=== PATIENT | female | born 1985 | race Caucasian/White ===

== ENCOUNTER 2017-07-18 00:05 | Emergency (ER) | payer OTHER ==
[2017-07-18 01:30] LABS: BILIRUBIN,URINE NEGATIVE (NEGATIVE)
[2017-07-18 01:38] LABS: HCG UR QUAL NEGATIVE; UA w/ MICROSCOPIC CHARGE YES; UR CULTURE IF IND INDICATED
[2017-07-18] MEDS ORDERED: SULFAM/TRIM 800/160 Prepack 2 PO STA (02:00)
[2017-07-18] MEDS ORDERED: PHENAZOPYRIDINE 100 MG TABLET PO STA (02:00)
[2017-07-18] MEDS ORDERED: SULFAMETH/TRIMETH DS 800/160 MG TABLET PO STA (02:00)
--- NOTE | 2017-07-18 02:01 | ED Physician Documentation ---
PD HPI FEMALE - Stated complaint Stated Complaint: FEMALE - Chief complaint Chief Complaint: Abd Pain - History obtained from History obtained from: Patient - History of Present Illness Timing - onset: Yesterday Timing - details: Gradual onset, Still present Associated symptoms: Dysuria, Urinary frequency. No: Vaginal bleeding, Vaginal discharge Similar symptoms before: Work up / diagnostics, Treatment Recently seen: Not recently seen - Additional information Additional information: Patient is a 31 year old female who is presenting to the emergency department for dysuria and hematuria. patient states that the symptoms have been going on for a couple of days and [place] [facility] [place] [facility] [place] so she came to the emergency department for evaluation. Review of Systems Constitutional: denies: Fever, Chills Eyes: denies: Loss of vision Ears: denies: Ear pain Nose: denies: Congestion GI: denies: Abdominal Pain, Nausea, Vomiting : reports: Dysuria, Frequency Skin: denies: Rash, Lesions Musculoskeletal: denies: Extremity pain Immunocompromised: denies: Immunocompromised PD PAST MEDICAL HISTORY - Present Medications Home Medications: Ambulatory Orders Medication Instructions Recorded Confirmed Phenazopyridine HCl [Pyridium] 200 mg PO TID PRN #6 tablet 07/18/17 Sulfamethox/Trimeth 800/160 1 each PO BID #10 tablet 07/18/17 [Bactrim Ds 800/160] - Allergies Allergies/Adverse Reactions: Allergies Allergy/AdvReac Type Severity Reaction Status Date / Time No Known Drug Allergies Allergy Verified 07/18/17 00:14 PD ED PE NORMAL - Vitals Vital signs reviewed: Yes - General General: Alert and oriented X 3, No acute distress - HEENT HEENT: Atraumatic, PERRL - Neck Neck: Supple, no meningeal sign - Cardiac Cardiac: RRR, No murmur - Respiratory Respiratory: No respiratory distress - Abdomen Abdomen: Non distended - Derm Derm: Normal color, Warm and dry, No rash - Extremities Extremities: No deformity - Neuro Neuro: Alert and oriented X 3, No motor deficit, No sensory deficit - Psych Psych: Normal mood, Normal affect Results - Vitals Vitals: Vital Signs - 24 hr 07/18/17 07/18/17 00:12 02:43 Temperature 36.7 C Heart Rate 106 H 79 Respiratory 18 Rate Blood Pressure 142/91 H 125/82 H O2 Saturation 100 100 Oxygen O2 Source Room air - Labs Labs: Laboratory Tests 07/18/17 01:20 Urine Color LT. YELLOW Urine Clarity CLEAR Urine pH 6.0 Ur Specific [place] <=1.005 Urine Protein NEGATIVE Urine Glucose (UA) NEGATIVE Urine Ketones NEGATIVE Urine Occult Blood MODERATE H Urine Nitrite NEGATIVE Urine Bilirubin NEGATIVE Urine Urobilinogen 0.2 (NORMAL) Ur Leukocyte Esterase SMALL H Urine RBC 0-5 Urine WBC 11-25 H Ur Squamous Epith Cells NONE SEEN Urine Bacteria None Seen Ur Microscopic Review INDICATED Urine Culture Comments INDICATED Urine HCG, Qual NEGATIVE PD MEDICAL DECISION MAKING - ED course Complexity details: reviewed results, considered differential, d/w patient ED course: Patient was seen and examined at bedside. Urine was collected and sent. Patient's results where consistent with a urinary tract infection. Patient was treated with pyridium and bactrim. Patient required no further work up and was stable for discharge with outpatient follow up. Departure - Departure Disposition: 01 Home, Self Care Clinical Impression: Urinary tract infection Condition: Good Instructions: ED UTI Cystitis Female Follow-Up: primary,care provider [Other] - Within 1 week Prescriptions: Sulfamethox/Trimeth 800/160 [Bactrim Ds 800/160] 1 each PO BID #10 tablet Phenazopyridine HCl [Pyridium] 200 mg PO TID PRN #6 tablet PRN Reason: dysuria Comments: Your symptoms today are being caused by a urinary tract infection. You will have your first dose of antibiotics tonight and will need to take if for the next 5 days. You should take the pyridium and motrin or tylenol for pain. You should make sure you stay well hydrated. You should follw up with your pmd if your symptoms persist. You may return to the emergency department at any time for new, worsening or uncontrollable symptoms. Forms: Activity restrictions Discharge Date/Time: 07/18/17 02:43
[2017-07-18] MEDS ORDERED: SULFAMETH/TRIMETH DS 800/160 MG TABLET PO ONE (02:38)
[2017-07-18] MEDS ORDERED: SULFAM/TRIM 800/160 Prepack 2 PO ONE (02:38)
[2017-07-18] MEDS ORDERED: PHENAZOPYRIDINE 100 MG TABLET PO ONE (02:39)
[2017-07-18 02:43] VITALS: BP 125/82
== END 2017-07-18 02:43 | disposition home or self-care (01) ==
LOC: ED 00:05
DX: N39.0 Urinary tract infection, site not specified (principal)
CPT/HCPCS: 81001; 81025; 87077; 87086; 87181; 99283; A9270; 81003

== ENCOUNTER 2017-07-23 06:55 | Emergency (ER) | payer OTHER ==
--- NOTE | 2017-07-23 07:10 | ED Physician Documentation ---
PD HPI NVD - Stated complaint Stated Complaint: VOMITING - Chief complaint Chief Complaint: Abd Pain - History obtained from History obtained from: Patient - History of Present Illness Timing - onset: Last night Timing - details: Abrupt onset, Still present Associated symptoms: Abdominal pain (cramping diffuse), Other (nausea and multiple vomiting without diarrhea.). No: Hematemesis Contributing factors: Bad food (onset soon after salad at a restaurant, but not sure if that was it. Also has been taking Ibuprofen for menstrual cramps the past 2 days and Bactrim for UTI the past 5 days. Dysuria has stopped.) Improved by: Vomiting Worsened by: Eating Similar symptoms before: Has not had sx before Recently seen: Emergency Dept (5 days ago for UTI symptoms.) Review of Systems Constitutional: reports: Myalgias. denies: Fever, Chills Nose: denies: Rhinorrhea / runny nose, Congestion Throat: denies: Sore throat Respiratory: denies: Cough GI: reports: Abdominal Pain, Nausea, Vomiting. denies: Abdominal Swelling, Diarrhea : reports: Dysuria (6 days ago, gone now), LMP (current). denies: Discharge Skin: denies: Rash, Lesions Neurologic: reports: Generalized weakness. denies: Near syncope PD PAST MEDICAL HISTORY - Past Medical History Cardiovascular: None Respiratory: None Neuro: None Endocrine/Autoimmune: None - Present Medications Home Medications: Ambulatory Orders Medication Instructions Recorded Confirmed Phenazopyridine HCl [Pyridium] 200 mg PO TID PRN #6 tablet 07/18/17 Sulfamethox/Trimeth 800/160 1 each PO BID #10 tablet 07/18/17 [Bactrim Ds 800/160] Ondansetron Odt [Zofran] 4 mg TL Q6H PRN #15 tablet 07/23/17 - Allergies Allergies/Adverse Reactions: Allergies Allergy/AdvReac Type Severity Reaction Status Date / Time No Known Drug Allergies Allergy Verified 07/23/17 07:04 PD ED PE NORMAL - Vitals Vital signs reviewed: Yes - General General: Alert and oriented X 3, Well developed/nourished - HEENT HEENT: Pharynx benign. No: Moist mucous membranes - Neck Neck: Supple, no meningeal sign, No adenopathy - Cardiac Cardiac: RRR (tachycardic), No murmur - Respiratory Respiratory: Clear bilaterally - Abdomen Abdomen: Normal bowel sounds, Soft, Non distended, No organomegaly, Other (mild suprapubic without guarding nor percussion tenderness. ) - Derm Derm: Normal color, Warm and dry, No rash - Neuro Neuro: Alert and oriented X 3, No motor deficit, Normal speech Results - Vitals Vitals: Vital Signs - 24 hr 07/23/17 07/23/17 07:02 08:09 Temperature 36.8 C 37.5 C Heart Rate 102 H 90 Respiratory 16 15 Rate Blood Pressure 109/76 100/88 H O2 Saturation 100 100 Oxygen O2 Source Room air - Labs Labs: Laboratory Tests 07/23/17 07:15 Urine Color YELLOW Urine Clarity CLEAR Urine pH 7.0 Ur Specific [place] 1.015 Urine Protein NEGATIVE Urine Glucose (UA) NEGATIVE Urine Ketones >=80 H Urine Occult Blood TRACE-LYSE Urine Nitrite NEGATIVE Urine Bilirubin NEGATIVE Urine Urobilinogen 0.2 (NORMAL) Ur Leukocyte Esterase NEGATIVE Ur Microscopic Review NOT INDICATED Urine Culture Comments NOT INDICATED Urine HCG, Qual NEGATIVE PD MEDICAL DECISION MAKING - ED course Complexity details: re-evaluated patient (improved with ODT Zofran and she preferred not having IV. She feels able to go home. ), considered differential ( the urine is clear so can stop the abx after 5 days of it. Also to hold Ibuprofen for menstrual cramps and use Tylenol instead. If gastritis from these , then would help. Zofran as needed. If was food related, then should be self- limited. ), d/w patient Departure - Departure Disposition: 01 Home, Self Care Clinical Impression: Dehydration Vomiting Qualifiers: Vomiting type: unspecified Vomiting Intractability: intractable Nausea presence : with nausea Qualified Code(s): R11.2 - Nausea with vomiting, unspecified Condition: Stable Record reviewed to determine appropriate education?: Yes Instructions: ED Nausea Vomiting Follow-Up: [facility] hectoraicha Garcia [Provider Group] Prescriptions: Ondansetron Odt [Zofran] 4 mg TL Q6H PRN #15 tablet PRN Reason: Nausea / Vomiting Comments: Your urine appears clear and so after 5 days of antibiotics, you can stop the antibiotic as that should be sufficient treatment. Also hold on any ibuprofen for your cramps and use Tylenol instead. Either or both of these could have been irritating her stomach. If your vomiting was related to those, then it should improve. Use ondansetron if needed for nausea. [place] food today. If your vomiting was related to food or food poisoning from last night, then it should be self-limited and improved today as well. If you are developing a viral type illness then it may have some persistence for a couple of days and use medications as needed. Recheck if worsening symptoms.
[2017-07-23 07:20] LABS: BILIRUBIN,URINE NEGATIVE (NEGATIVE)
[2017-07-23] MEDS ORDERED: ONDANSETRON ODT 4 MG TABLET TL STA (07:24)
[2017-07-23 07:27] LABS: HCG UR QUAL NEGATIVE; UA CHARGE (STRIP ONLY) YES; UR CULTURE IF IND NOT INDICATED
[2017-07-23] MEDS ORDERED: ONDANSETRON ODT 4 MG TABLET ONE ×2 (07:33→07:56)
[2017-07-23 08:09] VITALS: BP 100/88
[2017-07-23] MEDS ORDERED: ONDANSETRON ODT 4 MG Prepack 2 TL PRN (08:12)
[2017-07-23] MEDS ORDERED: ONDANSETRON ODT 4 MG Prepack 2 TL ONE (08:17)
== END 2017-07-23 08:18 | disposition home or self-care (01) ==
LOC: ED 06:55
DX: E86.0 Dehydration (principal); R11.2 Nausea with vomiting, unspecified
CPT/HCPCS: 81003; 81025; 99283; Q0162; 81001; 87086

== ENCOUNTER 2018-08-06 23:50 | Emergency (ER) | payer OTHER ==
[2018-08-07] MEDS ORDERED: SODIUM CHLORIDE 0.9% 1,000 ML IV ONE (00:02)
[2018-08-07] MEDS ORDERED: METOCLOPRAMIDE 10 MG/2 ML VIAL IVP STA (00:02)
[2018-08-07 00:15] LABS: BILIRUBIN,URINE NEGATIVE (NEGATIVE); GLUCOSE, URINE (UA) NEGATIVE (NEGATIVE); KETONES,URINE (UA) >=80 mg/dL (NEGATIVE); LEUKOCYTE ESTERASE, URINE TRACE (NEGATIVE); NITRITE,URINE NEGATIVE (NEGATIVE); OCCULT BLOOD,URINE NEGATIVE (NEGATIVE); PH,URINE 6.5 PH (5.0-7.5); PROTEIN,URINE NEGATIVE (NEGATIVE); UROBILINOGEN,URINE 0.2 (NORMAL) E.U./dL (NORMAL)
[2018-08-07 00:16] LABS: CLARITY,URINE CLEAR (CLEAR)
[2018-08-07 00:19] LABS: BACTERIA,URINE Rare /HPF (None Seen); RBC,URINE 0-5 /HPF (0-5); SQUAMOUS EPITHELIAL CELL,UR MOD Squamous (<= Few)
--- NOTE | 2018-08-07 00:32 | ED Physician Documentation ---
History of Present Illness - Stated complaint Stated Complaint: VOMITING,7W - Chief complaint Chief Complaint: Abd Pain - History obtained from History obtained from: Patient - Additonal information Additional information: 32-year-old female presents the emergency department with reports of nausea and vomiting. The patient is 7 weeks with her first and reports significant vomiting today. The patient denies any abdominal pain, abdominal cramping, dysuria or vaginal bleeding. No reports of diarrhea. Symptoms are described as moderate. No other associated symptoms. No relieving factors Review of Systems Constitutional: denies: Fever, Chills Ears: denies: Ear pain Throat: denies: Dental pain / toothache Cardiac: denies: Chest pain / pressure Respiratory: denies: Dyspnea GI: reports: Nausea, Vomiting. denies: Abdominal Pain : denies: Vaginal bleeding, Irregular menses Musculoskeletal: denies: Neck pain Neurologic: denies: Generalized weakness PD PAST MEDICAL HISTORY - Past Medical History Past Medical History: No Cardiovascular: None Respiratory: None Endocrine/Autoimmune: None - Past Surgical History Past Surgical History: No - Present Medications Home Medications: Ambulatory Orders Medication Instructions Recorded Confirmed Metoclopramide [Reglan] 10 mg PO Q6H PRN #30 tablet 08/07/18 Pnv No.122/Iron/Folic Acid 1 each PO DAILY 08/07/18 08/07/18 [ Multi Tablet] - Allergies Allergies/Adverse Reactions: Allergies Allergy/AdvReac Type Severity Reaction Status Date / Time No Known Drug Allergies Allergy Verified 08/07/18 00:00 - Social History Does the pt smoke?: No Smoking Status: Never smoker Does the pt drink ETOH?: No Does the pt have substance abuse?: No - Immunizations Immunizations are current?: Yes - POLST Patient has POLST: No PD ED PE NORMAL - General General: Alert and oriented X 3, No acute distress - HEENT HEENT: Atraumatic, PERRL, EOMI, Ears normal - Cardiac Cardiac: RRR, Strong equal pulses - Respiratory Respiratory: No respiratory distress, Clear bilaterally - Abdomen Abdomen: Soft, Non tender, Non distended - Derm Derm: Normal color - Extremities Extremities: No deformity, No edema - Neuro Neuro: Alert and oriented X 3, Normal speech - Psych Psych: Normal mood Results - Vitals Vitals: Vital Signs - 24 hr 08/06/18 23:57 Temperature 36.8 C Heart Rate 88 Respiratory 20 Rate Blood Pressure 116/81 H O2 Saturation 100 Oxygen O2 Source Room air - Labs Labs: Laboratory Tests 08/07/18 08/07/18 08/07/18 00:08 00:30 00:30 WBC 9.3 RBC 4.41 Hgb 12.9 Hct 37.9 MCV 86.1 MCH 29.3 MCHC 34.0 RDW 14.7 Plt Count 335 MPV 9.0 Neut # (Auto) 7.1 H Lymph # (Auto) 1.6 [place] # (Auto) 0.5 Eos # (Auto) 0.0 Baso # (Auto) 0.1 Absolute Nucleated RBC 0.00 Nucleated RBC % 0.0 Sodium 133 L Potassium 3.3 L Chloride 105 Carbon Dioxide 18 L Anion Gap 10.0 BUN 8 Creatinine 0.5 Estimated GFR (MDRD) 142 Glucose 108 H Calcium 8.9 Total Bilirubin 0.6 AST 14 ALT 10 Alkaline Phosphatase 41 L Total Protein 7.2 Albumin 4.2 Globulin 3.0 Albumin/Globulin Ratio 1.4 Lipase 31 HCG, Quant Urine Color YELLOW Urine Clarity CLEAR Urine pH 6.5 Ur Specific [place] 1.020 Urine Protein NEGATIVE Urine Glucose (UA) NEGATIVE Urine Ketones >=80 H Urine Occult Blood NEGATIVE Urine Nitrite NEGATIVE Urine Bilirubin NEGATIVE Urine Urobilinogen 0.2 (NORMAL) Ur Leukocyte Esterase TRACE H Urine RBC 0-5 Urine WBC 0-3 Ur Squamous Epith Cells MOD Squamous H Urine Bacteria Rare Ur Microscopic Review INDICATED Urine Culture Comments NOT INDICATED 08/07/18 00:30 WBC RBC Hgb Hct MCV MCH MCHC RDW Plt Count MPV Neut # (Auto) Lymph # (Auto) [place] # (Auto) Eos # (Auto) Baso # (Auto) Absolute Nucleated RBC Nucleated RBC % Sodium Potassium Chloride Carbon Dioxide Anion Gap BUN Creatinine Estimated GFR (MDRD) Glucose Calcium Total Bilirubin AST ALT Alkaline Phosphatase Total Protein Albumin Globulin Albumin/Globulin Ratio Lipase HCG, Quant 81027.00 Urine Color Urine Clarity Urine pH Ur Specific [place] Urine Protein Urine Glucose (UA) Urine Ketones Urine Occult Blood Urine Nitrite Urine Bilirubin Urine Urobilinogen Ur Leukocyte Esterase Urine RBC Urine WBC Ur Squamous Epith Cells Urine Bacteria Ur Microscopic Review Urine Culture Comments PD MEDICAL DECISION MAKING - ED course ED course: On reevaluation the patient is resting comfortably and requesting discharge home. On clinical examination and historyThere is no findings suggestive of ectopic or spontaneous miscarriage since the patient has no abdominal pain nor vaginal bleeding. Currently, the patient appears appropriate for dis charge and ongoing outpatient management. I discussed with her warning signs and recommended returning to the emergency department immediately for worsening or any concerns. - Sepsis Event Vital Signs: Vital Signs - 24 hr 08/06/18 23:57 Temperature 36.8 C Heart Rate 88 Respiratory 20 Rate Blood Pressure 116/81 H O2 Saturation 100 Oxygen O2 Source Room air Departure - Departure Disposition: 01 Home, Self Care Clinical Impression: Early stage of Vomiting Qualifiers: Vomiting type: unspecified Vomiting Intractability: unspecified Nausea presence: with nausea Qualified Code(s): R11.2 - Nausea with vomiting, unspecified Condition: Good Instructions: ED Preg Morning Sickness Prescriptions: Metoclopramide [Reglan] 10 mg PO Q6H PRN #30 tablet PRN Reason: Nausea / Vomiting Comments: Please follow-up with your [employer]. Please return to the emergency department immediately for worsening symptoms or any concerns.
[2018-08-07 00:35] LABS: BASOPHILS # (AUTO) 0.1 10^3/uL (0.0-0.1); BASOPHILS % (AUTO) 0.7 %; EOSINOPHILS % (AUTO) 0.5 %; HGB - HEMOGLOBIN 12.9 g/dL (12.0-16.0); LYMPHOCYTES # (AUTO) 1.6 10^3/uL (1.5-3.5); LYMPHOCYTES % (AUTO) 17.1 %; MEAN CORPUSCULAR HEMOGLOBIN 29.3 pg (27.0-31.0); MEAN CORPUSCULAR VOLUME 86.1 fL (81.0-99.0); MONOCYTES # (AUTO) 0.5 10^3/uL (0.0-1.0); MONOCYTES % (AUTO) 5.7 %; NEUTROPHILS # (AUTO) 7.1 10^3/uL (1.5-6.6); PLT - PLATELET COUNT 335 10^3/uL (130-450); RED BLOOD COUNT 4.41 10^6/uL (4.20-5.40); RED CELL DISTRIBUTION WIDTH 14.7 % (12.0-15.0); WHITE BLOOD COUNT 9.3 x10^3/uL (4.8-10.8)
[2018-08-07 00:48] LABS: ALBUMIN 4.2 g/dL (3.2-5.5); ALBUMIN/GLOBULIN RATIO 1.4 (1.0-2.2); BILIRUBIN,TOTAL 0.6 mg/dL (0.2-1.0); CALCIUM 8.9 mg/dL (8.5-10.3); CREATININE 0.5 mg/dL (0.4-1.0); TOTAL PROTEIN 7.2 g/dL (6.7-8.2)
[2018-08-07 01:35] VITALS: BP 117/73
== END 2018-08-07 01:39 | disposition home or self-care (01) ==
LOC: ED 23:50
DX: O21.0 Mild hyperemesis gravidarum (principal); Z3A.01 Less than 8 weeks gestation of pregnancy
CPT/HCPCS: 36415; 80053; 81001; 83690; 84702; 85025; 96361; 96374; 99283; J2765; 81003; 87086

== ENCOUNTER 2018-11-21 08:00 | Outpatient (CLI) | payer OTHER | END 2018-11-21 23:59 | LOC: LAB.R 08:00 | PROVIDERS: ATTEND Registered Nurse | DX: Z36.9 Encounter for antenatal screening, unspecified (principal) | CPT/HCPCS: 87491; 87591 ==

== ENCOUNTER 2018-12-27 07:28 | Outpatient (CLI) | payer OTHER ==
[2018-12-27 08:28] LABS: BASOPHILS # (AUTO) 0.2 10^3/uL (0.0-0.1); BASOPHILS % (AUTO) 1.5 %; BILIRUBIN,URINE NEGATIVE (NEGATIVE); EOSINOPHILS # (AUTO) 0.2 10^3/uL (0.0-0.7); EOSINOPHILS % (AUTO) 1.5 %; GLUCOSE, URINE (UA) NEGATIVE (NEGATIVE); KETONES,URINE (UA) NEGATIVE (NEGATIVE); LEUKOCYTE ESTERASE, URINE NEGATIVE (NEGATIVE); LYMPHOCYTES # (AUTO) 2.3 10^3/uL (1.5-3.5); LYMPHOCYTES % (AUTO) 21.6 %; MEAN CORPUSCULAR HEMOGLOBIN 30.8 pg (27.0-31.0); MEAN CORPUSCULAR HGB CONC 34.1 g/dL (32.0-36.0); MEAN CORPUSCULAR VOLUME 90.3 fL (81.0-99.0); MEAN PLATELET VOLUME 9.7 fL (7.9-10.8); MONOCYTES # (AUTO) 0.8 10^3/uL (0.0-1.0); MONOCYTES % (AUTO) 7.6 %; NEUTROPHILS # (AUTO) 7.3 10^3/uL (1.5-6.6); NEUTROPHILS % (AUTO) 67.8 %; NITRITE,URINE NEGATIVE (NEGATIVE); OCCULT BLOOD,URINE TRACE-LYSE (NEGATIVE); PLT - PLATELET COUNT 285 10^3/uL (130-450); PROTEIN,URINE NEGATIVE (NEGATIVE); RED BLOOD COUNT 3.88 10^6/uL (4.20-5.40); RED CELL DISTRIBUTION WIDTH 13.7 % (12.0-15.0); UROBILINOGEN,URINE 0.2 (NORMAL) E.U./dL (NORMAL); WHITE BLOOD COUNT 10.7 x10^3/uL (4.8-10.8)
[2018-12-27 08:30] LABS: CLARITY,URINE CLEAR (CLEAR)
[2018-12-27 08:37] LABS: ALBUMIN 3.2 g/dL (3.2-5.5); ALKALINE PHOSPHATASE 46 IU/L (42-121); ALT ALANINE AMINOTRANSFERASE 19 IU/L (10-60); AST ASPARTATE AMINOTRANSFERASE 21 IU/L (10-42); BILIRUBIN,TOTAL 0.3 mg/dL (0.2-1.0); TOTAL PROTEIN 6.5 g/dL (6.7-8.2)
[2018-12-27 08:52] LABS: BILIRUBIN,DIRECT < 0.1 mg/dL (0.1-0.5)
[2018-12-27 09:03] LABS: BACTERIA,URINE Rare /HPF (None Seen); RBC,URINE None Seen /HPF (0-5); SQUAMOUS EPITHELIAL CELL,UR FEW Squamous (<= Few)
[2018-12-27 09:04] LABS: YEAST,URINE PRESENT
--- NOTE | 2018-12-27 09:59 | Ultrasound Report ---
Reason: RUQ pain, nausea, 27 weeks 4 days gestation pregna Procedure Date: 12/27/2018 Accession Number: [id number] / [id number] Procedure: US - Abdomen Limited CPT Code: FULL RESULT: EXAM: ABDOMEN ULTRASOUND LIMITED, RUQ EXAM DATE: 12/27/2018 09:41 AM. CLINICAL HISTORY: RUQ pain, nausea, 27 weeks 4 days gestation . COMPARISON: None. TECHNIQUE: Real-time scanning was performed with static images obtained. FINDINGS: Liver: Hepatic parenchymal echotexture is within normal limits. No hepatic lesions. No intrahepatic ductal dilatation. The liver is not enlarged, 15.6 cm. Main portal vein flow: Hepatopetal. Gallbladder: Normal. No stones, wall thickening, or sonographic Thibodeaux's sign. Biliary System: CBD measures 3 mm. No intrahepatic or extrahepatic ductal dilatation. Other: Right kidney is normal in contour and echotexture and measures 11.2 cm. Mild to moderate right hydronephrosis and proximal right ureteral dilatation. IMPRESSION: 1. Normal gallbladder. No biliary ductal dilatation. 2. No hepatic lesions. 3. Mild to moderate right hydronephrosis and proximal right ureteral dilatation. RADIA
--- NOTE | 2018-12-27 10:16 | PREOP HISTORY & PHYSICAL ---
DATE OF SERVICE: 12/27/2018 Physician: Boaz Jacobs MD IDENTIFICATION: Patient is a 33-year-old G1, P0, female whose EDC is , making her 27.4 weeks. CHIEF COMPLAINT: Right-sided abdominal pain. HISTORY OF PRESENT ILLNESS: Patient states that roughly 10:30 this morning, she developed right-sided abdominal pain. It was quite severe. She grades it roughly at 9/10. She believes it started on the right lower side, but ascended up to the right upper abdomen. She does have a history of having some round ligament pain, but stated this was drastically different. It awakened her at 4 o'clock, she presented here at roughly 7:30 complaining of the same pain. The pain resolved spontaneously. She states that it is now roughly a 1/10 or 2/10. She denies any previous episodes. She denies a history of gallstones, kidney, or bladder issues. The patient is a recent transfer from [facility], PAST MEDICAL HISTORY: Patient denies any hypertensive, diabetic, cardiac, or pulmonary disease. PAST SURGICAL HISTORY: [place] teeth. ALLERGIES: NONE KNOWN. CURRENT MEDICATIONS: vitamins. HABITS: Patient denies use of alcohol, tobacco, street or addictive drugs, or THC. 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 OBSTETRIC HISTORY: Patient states this is her first . It is significant in that there is evidence of pyelocaliectasis on the infant. She currently has an ultrasound to be seen by the maternal medicine in the early part of January. LABORATORIES CBC on admission showed a white count of 10.7, hemoglobin is 12.0, hematocrit is 35.1, platelets are 285. She does not show evidence of any macrocytosis. Chemistries: She had bilirubins, which are noted to be within normal limits, with the exception of a direct bilirubin which is decreased at less than 0.1. Her alk phos, ALT, and AST are normal. Total protein is mildly depressed at 6.5. Urinalysis is negative for RBCs or WBCs, there are a few squamous epithelial. She does have some yeast at this time. STUDIES: Ultrasound has been performed, looking both gallbladder as well as kidney and the collecting system. These results are pending at this time; I anticipate their return very soon. PE. vital signs are normal. PEREOM Abdomin soft, uterus is nontender. no current RUQ tenderness No CVA tenderness IMPRESSION 1. 27.4 weeks' gestation. 2. Normal liver function tests, white count, as well as urinalysis. 3. probable renal colic as the US showed dilated right renal collecting system 3. At this point, I doubt that she has any gallbladder disease or evidence of renal lithiasis or pyelonephritis. At this point, most likely her diagnosis is that of either gas pain or round ligament, but since the duration of the pain, it speaks against round ligament. We will allow the patient to eat and will send home upon return of her ultrasound report. TD: 12/27/2018 10:10 TAPAN
[2018-12-27 10:27] VITALS: BP 112/81
== END 2018-12-27 10:00 | disposition home or self-care (01) ==
LOC: WFO 07:28 → FBP 07:29 → WFO 10:00
PROVIDERS: ATTEND Obstetrics & Gynecology
DX: O99.89 Other specified diseases and conditions complicating pregnancy, childbirth and the puerperium (principal); N13.30 Unspecified hydronephrosis; Z3A.27 27 weeks gestation of pregnancy
CPT/HCPCS: 36415; 76705; 80076; 81001; 85025; 87086; 99214

== ENCOUNTER 2019-01-18 08:50 | Outpatient (CLI) | payer OTHER ==
[2019-01-18 13:39] LABS: HB2 TOTAL 11.9 g/dL; HEMOGLOBIN A1C 0.37 g/dL
== END 2019-01-18 23:59 | disposition home or self-care (01) ==
LOC: LAB.N 08:50
PROVIDERS: ATTEND Registered Nurse
DX: Z36.9 Encounter for antenatal screening, unspecified (principal)
CPT/HCPCS: 36415; 82947; 83036; 86850

== ENCOUNTER 2019-01-29 09:43 | Outpatient (CLI) | payer OTHER ==
--- NOTE | 2019-01-29 14:37 | Ultrasound Report ---
Reason: ENCOUNTER FOR SCREENING,UNSPECIFIED Procedure Date: 01/29/2019 Accession Number: [id number] / [id number] Procedure: US - OB F/U or Repeat CPT Code: FULL RESULT: EXAM: FOLLOW-UP OBSTETRICAL ULTRASOUND EXAM DATE: 01/29/2019 10:06 AM. CLINICAL HISTORY: Encounter for screening, unspecified. COMPARISON: ABDOMEN LIMITED 12/27/2018 9:10 AM. TECHNIQUE: Real-time sonographic evaluation of the fetus performed by the senior adults director. Multiple u.s. representative static images were saved for review. DATING: Established EGA 32 weeks 1 day with [facility] 03/25/2019 based on LMP/physician stated.. EGA 30 weeks 7 days with [facility] 04/02/2019 based on outside ultrasound dated 12/01/2018. EGA 30 weeks 5 days with [facility] 04/04/2019 based on the current ultrasound. GENERAL EVALUATION Doshi . Cardiac activity: 143 bpm. movement: Visualized. Presentation: Cephalic. Placenta: Posterior. position. No evidence of previa. Amniotic fluid: Normal. VINEET 11.8 cm. MVP 3.7 cm. BIOMETRY Bi-Parietal Diameter (BPD): 7.9 cm, 31 weeks 4 days Head Circumference (HC): 28.0 cm, 30 weeks 4 days Abdominal Circumference (AC): 29.3 cm, 32 weeks 2 days Femur Length (FL): 5.5 cm, 29 weeks 0 days Estimated Weight: 1809 g, 38 percentile for 32 weeks 1 day. ANATOMY kidneys. Follow-up from a prior ultrasound: There is mild persistent right-sided pelvicaliectasis measuring 6 mm in AP dimension compared to 8 mm on the prior exam. Left renal pelvis measures 4.3 mm compared to 7 on the prior exam. MATERNAL STRUCTURES Cervix is long and closed measuring 4.1 cm transabdominally. IMPRESSION: 1. Doshi live intrauterine with gestational age 32 weeks 1 day based on physician stated/LMP. Note: Current ultrasound is 10 days delayed compared to established gestational age but shows concordant interval growth from a recent ultrasound 12/01/2018. 2. Estimated weight is within expected limits for assigned dating (38 percentile). 3. Normal interval growth compared to reported outside ultrasound 12/01/2018. RADIA
== END 2019-01-29 09:44 | disposition home or self-care (01) ==
LOC: DI 09:43
PROVIDERS: ATTEND Registered Nurse
DX: Z36.9 Encounter for antenatal screening, unspecified (principal)
CPT/HCPCS: 76816

== ENCOUNTER 2019-01-31 08:00 | Outpatient (CLI) | payer OTHER | END 2019-01-31 23:59 | disposition home or self-care (01) | LOC: LAB.N 08:00 | PROVIDERS: ATTEND Nurse Practitioner Obstetrics & Gynecology | DX: Z36.9 Encounter for antenatal screening, unspecified (principal) | CPT/HCPCS: 36415; 82947 ==

== ENCOUNTER 2019-02-26 08:00 | Outpatient (CLI) | payer OTHER | END 2019-02-26 23:59 | disposition home or self-care (01) | LOC: LAB.R 08:00 | PROVIDERS: ATTEND Nurse Practitioner Obstetrics & Gynecology | DX: Z36.85 Encounter for antenatal screening for Streptococcus B (principal); Z36.9 Encounter for antenatal screening, unspecified | CPT/HCPCS: 87491; 87591; 87797 ==

== ENCOUNTER 2019-02-26 10:32 | Outpatient (CLI) | payer OTHER ==
[2019-02-27 11:17] LABS: HEPATITIS C ANTIBODY NON-REACTIVE (NON-REACTIVE)
[2019-02-27 14:35] LABS: HIV AG/AB 4TH GEN NON-REACTIVE (NON-REACTIVE)
[2019-02-28 10:32] LABS: HSV 1 IGG TYPE SPECIFIC AB <0.90 index; HSV 2 IGG TYPE SPECIFIC AB <0.90 index
== END 2019-02-26 10:33 | disposition home or self-care (01) ==
LOC: LAB 10:32
PROVIDERS: ATTEND Nurse Practitioner Obstetrics & Gynecology
DX: Z36.9 Encounter for antenatal screening, unspecified (principal); Z36.85 Encounter for antenatal screening for Streptococcus B
CPT/HCPCS: 36415; 81599; 86592; 86695; 86696; 86803; 87389; 87491; 87591; 87797

== ENCOUNTER 2019-03-30 08:56 | Outpatient (CLI) | payer OTHER ==
--- NOTE | 2019-03-31 14:35 | Ultrasound Report ---
Reason: UTERINE SIZE DATE DISCREPANCY, ANTEPARTUM, UNSP TR Procedure Date: 03/30/2019 Accession Number: [id number] / [id number] Procedure: US - OB F/U or Repeat CPT Code: FULL RESULT: EXAM: FOLLOW-UP OBSTETRICAL ULTRASOUND EXAM DATE: 03/30/2019 09:26 AM. CLINICAL HISTORY: UTERINE SIZE DATE DISCREPANCY, ANTEPARTUM, UNSP TR. COMPARISON: OB F/U OR REPEAT 01/29/2019 10:06 AM. TECHNIQUE: Real-time sonographic evaluation of the fetus performed by the attic blower. Multiple customer retention representative static images were saved for review. DATING: Established EGA 40 weeks 5 days with [facility] 03/25/2019 based on established dates. EGA 39 weeks 2 days with [facility] 04/04/2019 based on prior ultrasound of 01/29/2019. EGA 38 weeks 0 days with [facility] 04/13/2019 based on the current ultrasound. GENERAL EVALUATION Doshi . Cardiac activity: 130 bpm. movement: Visualized. Presentation: Cephalic. Placenta: Posterior. Amniotic fluid: Normal. VINEET 8.5 cm. MVP 2.7 cm. BIOMETRY Bi-Parietal Diameter (BPD): 9.1 cm, 36 weeks 6 days Head Circumference (HC): 33.0 cm, 37 weeks 4 days Abdominal Circumference (AC): 33.5 cm, 34 weeks 3 days Femur Length (FL): 7.8 cm, 30 weeks 0 days Estimated Weight: 3366 g, 23 percentile for 40 weeks 5 days. Previously 38 percentile. ANATOMY Limited evaluation of anatomy. No gross abnormality. MATERNAL STRUCTURES Cervix measures 3.5 cm, appears closed. IMPRESSION: 1. Doshi live intrauterine with gestational age 40 weeks 5 days (EDV 03/25/2019) based on established dates. 2. Estimated weight is within expected limits for assigned dating. EFW 23%, previously 38% on 01/29/2019. 3. Placenta posterior. VINEET 8.5 cm. Cervix 3.5 cm, closed. RADIA
== END 2019-03-30 08:57 | disposition home or self-care (01) ==
LOC: DI 08:56
PROVIDERS: ATTEND Registered Nurse
DX: O26.849 Uterine size-date discrepancy, unspecified trimester (principal); Z3A.40 40 weeks gestation of pregnancy
CPT/HCPCS: 76816

== ENCOUNTER 2019-04-02 10:18 | Outpatient (CLI) | payer OTHER ==
[2019-04-02 12:12] VITALS: BP 123/82
--- NOTE | 2019-04-10 13:20 | PROCEDURE REPORT ---
- HPI Diagnosis/Indication for NST: Post-dates gestation Current EDU 03/25/19 Gestation 41 Weeks and 1 Days 1 Para 0 Vital Signs Temperature 36.8 C 04/02/19 10:26 Heart Rate 83 04/02/19 10:26 Respiratory Rate 16 04/02/19 10:26 Blood Pressure 123/82 H 04/02/19 10:26 O2 Saturation 100 04/02/19 10:26 Temperature 36.8 C 04/02/19 10:26 Heart Rate 83 04/02/19 10:26 Respiratory Rate 16 04/02/19 10:26 Blood Pressure 123/82 H 04/02/19 10:26 O2 Saturation 100 04/02/19 10:26 - NST Procedure NST Procedure Start Date 04/02/19 Start Time 10:26 Stop Time 11:31 Vibroacoustic Stimulation Used No Patient States Movement Yes - Results and Plan Findings/Impression: NST - reactive. Baseline 130s, moderate variability, + accels, no decels Plan: Patient released home with precautions. Return 04/05/19 for NST. Pt verbalized understanding and agrees to above plan. She denies further questions or concerns at this time.
== END 2019-04-02 11:45 | disposition home or self-care (01) ==
LOC: WFO 10:18 → FBP 10:23 → WFO 11:45
PROVIDERS: ATTEND Nurse Practitioner Obstetrics & Gynecology
DX: O48.0 Post-term pregnancy (principal); Z3A.41 41 weeks gestation of pregnancy
CPT/HCPCS: 59025

== ENCOUNTER 2019-04-05 03:22 | Inpatient (IN) | payer OTHER ==
--- NOTE | 2019-04-05 06:34 | HISTORY & PHYSICAL EXAMINATION ---
Admit History - Visit Reason Visit Reason: Contractions - : 1 Parity: 0 Premature: 0 Ectopic: 0 : 0 Care: positive: [facility] Risk/History: positive: None Complications This : positive: None Smoking Status: Never smoker - Mother's Labs Mother's Blood Type: positive: A Mother's RH: positive: Positive GBS: positive: Group B Step Negative Rubella Status: positive: Immune Meds/Allgy - Home Medications Home Medications: Ambulatory Orders Medication Instructions Recorded Confirmed Metoclopramide [Reglan] 10 mg PO Q6H PRN #30 tablet 08/07/18 Pnv No.122/Iron/Folic Acid 1 each PO DAILY 08/07/18 08/07/18 [ Multi Tablet] - Allergies Allergies/Adverse Reactions: Allergies Allergy/AdvReac Type Severity Reaction Status Date / Time No Known Drug Allergies Allergy Verified 08/07/18 00:00 Review of Systems - Constitutional Constitutional: denies: Fatigue, Fever, Chills, Malaise - Eyes Eyes: denies: Blurred vision, Spots in vision, Dipolpia - Cardiovascular Cariovascular: denies: Irregular heart rate, Palpitations, Chest pain, Edema - Respiratory Respiratory: denies: SOB at rest - Gastrointestinal Gastrointestinal: denies: Abdominal pain, Constipation, Diarrhea, Change in bowel habits, Nausea, Vomiting - Integumentary Integumentary: denies: Rash, Pruritis - Neurological Neurological: denies: Headache - Psychiatric Psychiatric: denies: Depression, Anxiety Physical - Abdominal Exam Vital Signs: Temp Pulse Resp BP Pulse Ox 36.7 C 89 22 124/75 99 04/05/19 03:32 04/05/19 06:00 04/05/19 06:00 04/05/19 06:00 04/05/19 06:00 Contraction Frequency (min/apart): intermittent Contraction Intensity: positive: Mild Uterine Resting Tone: positive: Soft - Monitoring Heart Rate Baseline: 110 Strip Review: positive: Category I - Presentation Presentation: positive: Vertex - Vaginal Exam Membranes: positive: Membranes intact Dilation (in cm): 3 Effacement (%): 80 - Speculum Exam Speculum Exam Performed: positive: No Plan for Labor - Plan For Labor I expect patient to be DC'd or transferred within 96 hours.: Yes Plan for Labor: HPI: This 33yo @ 41.4wks gestation presents today with c/o contractions. She reports her contractions have begun to increase in frequency and intensity and she is experiencing a significant amount of back discomfort. She denies VB or Lof. She reports +FM. She denies KUMAR, visual disturbances, RUQ or epigastric pain. Upon arrival her cervix was noted to be 3/80/0, midposition, vertex. Membranes intact. FHR baseline 110, moderate variability, + accels, intermittent variable decelerations, occasional late decelerations. There are intermittent periods of decreased baseline to 100 with decelerations to 90. Difficult to appreciate character of decelerations as contractions have not been easily monitored. When pt is in hands and knees position, baseline decreases and decelerations occur more frequently. Patient present with her whom she states has not been supportive and she feels he is trying to push her into making a decision to stay. I reviewed my recommendation to be admitted for labor augmentation secondary to early labor status, postdates , and Category II FHR, extensively with the patient today. She is completely averse to any intervention and she is afraid that initiating any sort of intervention will start the chain of intervention that will lead to a delivery for her. She is feeling the majority of her contractions in her back so she assumes a forward leaning/hands and knees position which causes her fetus to have baseline 100s with decelerations to 90. She refuses repeat SVE. She states she is uncomfortable at the hospital and she is worried that she will be unable to eat or sleep or "have a fan". She was counseled extensively regarding the risks of expectant management with a Category II FHR tracing including and pt agrees to be admitted for management. She refuses SVE. Advised admission so she can get into the [facility]. Will repeat SVE x 4 hours and consider AROM vs misoprostol for labor augmentation at that time. Dating criteria: LMP: 06/18/2019 Initial U/S @ 10.1wks - agrees Serial exams - agree PMHx: Anxiety; headache/migraine Surgical Hx: [place] teeth removal Social hx: Never smoker, no ETOH or IVDA. Medications: PNV Allergies: NKDA labs: Hgb 12.0, Hct 35.1, PLT 285 Blood type A positive, antibody neg Rubella immune RPR non-reactive Hep B neg GC/CT neg Hep C neg HIV neg Hgb A1C 5.0 Serum integrated screen - neg Varicella immune 1 hour GTT - refused GBS negative Ultrasounds: Initial U/S @ 10.1wks - agrees 11/08/2019 FAS: Posterior placenta, no previa. FAS WNL with the exception of mild to moderate bilateral renal pyelectasis. F/u ultrasound recommended. Consider MFM consultation. 01/12/2019: F/u @ 29.5wks WNL. bilateral kidneys WNL with no evidence of pyelectasis. EFW 1333g (19th percentile) 01/29/2019: EFW 38th percentile. kidneys reveal mild persistent right- sided pelvicaliectasis measuring 6mm in AP dimension compared to 8mm on the prior exam. Left renal pelvis measures 4.3mm compared to 7 on the prior exam. 03/30/2019: Growth and VINEET @ 40.5wks; Growth WNL, EFW 23rd percentile Physical Exam: Normocephalic, atraumatic PERRLA Heart RRR w/o M/G/R Lungs CTAB Abdomen gravid, soft and nontender. EFW 3200g Bilateral LE's no edema Mood is poor Assessment: 33yo @ 41.4wks gestation Early labor FHR Category II with intermittent periods of category I - overall reassuring at this time GBS neg Plan: Admit for active management Repeat SVE after 4 hours in jacuzzi Plan IV saline lock placement and initiation of misoprostol for augmentation vs AROM Continuous monitoring Nitrous oxide per maternal request Encouraged ambulation and position changes Pt verbalized understanding and agrees to above plan. She denies questions about the plan at this time. present at the bedside and agrees with the above plan.
[2019-04-05] MEDS ORDERED: SODIUM CHLORIDE FLUSH 0.9% 10 ML SYRINGE ONE ×3 (08:03→14:24)
--- NOTE | 2019-04-05 10:17 | PROVIDER PROGRESS NOTE ---
Labor Progress Note - Uterine Monitoring Contraction Frequency (min/apart): irregular Contraction Intensity: positive: Mild Uterine Resting Tone: positive: Soft - Monitoring Monitor Mode: positive: External ultrasound Heart Rate Baseline: 130 Heart Rate Variability: positive: Moderate (6-25 bmp) Accelerations: positive: Present, 15x15 Decelerations: positive: None Strip Review: positive: Category I - Vaginal Exam Dilation (in cm): 3 Effacement (%): 80 Station: -1 Cervical Position: Posterior - Labor Progress Note Labor Progress Note/Additional Text: S: Breathing through contractions on hands and knees. Feeling majority of discomfort with contractions in her lower back. Liked the jacuzzi and desires to get back into the tub. Attempted AROM and pt reports discomfort with cervical exam - unable to complete. Pt teary and states "I just want my mom". Per her , her mother plans to be present later this afternoon. Pt agreeable to IV saline lock for administration of BC misoprostol. supportive at the bedside. Pt to get back into the tub. O: Contractions irregular and palpate mild with soft resting tone. FHR baseline 130s, moderate variability, + accels, no decels SVE 3/80/-1, posterior, vertex (unchanged from 0300 examination) BP 130/82, T 36.7, HR 91 A: 33yo @ 41.4wks gestation Post-dates FHR Category I at present GBS neg Early labor Attempted AROM. Unable secondary to pt discomfort- no fluid noted and membranes remain intact. P: Counseled regarding options and recommendation for labor augmentation secondary to post-dates . FHR Category I at this time and is overall reassuring. IV saline lock placement. Administered 50mcg of BC misoprostol q 4 hours Repeat SVE in 8 hours or sooner PRN. Continuous monitoring Encouraged ambulation and position changes. Mikie per patient request. Counseled labor and delivery RNs not to offer pain medication as patient was very clear she did not want to be offered pain management options unless she specifically requests them. Pt, , and labor RNs all verbalized understanding and agree to above plan. They deny further questions or concerns at this time.
[2019-04-05 10:47] LABS: BASOPHILS # (AUTO) 0.1 10^3/uL (0.0-0.1); BASOPHILS % (AUTO) 0.9 %; EOSINOPHILS % (AUTO) 0.1 %; HGB - HEMOGLOBIN 12.9 g/dL (12.0-16.0); LYMPHOCYTES # (AUTO) 1.7 10^3/uL (1.5-3.5); LYMPHOCYTES % (AUTO) 10.6 %; MEAN CORPUSCULAR HEMOGLOBIN 30.2 pg (27.0-31.0); MEAN CORPUSCULAR HGB CONC 33.3 g/dL (32.0-36.0); MEAN CORPUSCULAR VOLUME 90.8 fL (81.0-99.0); MEAN PLATELET VOLUME 10.1 fL (7.9-10.8); MONOCYTES # (AUTO) 0.8 10^3/uL (0.0-1.0); NEUTROPHILS # (AUTO) 13.5 10^3/uL (1.5-6.6); NEUTROPHILS % (AUTO) 83.4 %; PLT - PLATELET COUNT 276 10^3/uL (130-450); RED BLOOD COUNT 4.26 10^6/uL (4.20-5.40); RED CELL DISTRIBUTION WIDTH 15.2 % (12.0-15.0); WHITE BLOOD COUNT 16.2 x10^3/uL (4.8-10.8)
[2019-04-05] MEDS ORDERED: ONDANSETRON 4 MG/2 ML VIAL IVP PRN ×2 (10:48→18:52)
[2019-04-05] MEDS ORDERED: miSOPROStol 100 MCG TABLET BC SCH (11:00)
[2019-04-05] MEDS ORDERED: LACTATED RINGERS 1,000 ML IV ONE ×2 (11:06→18:16)
[2019-04-05] MEDS ORDERED: fentaNYL 100 MCG/2 ML VIAL IVP PRN (13:14)
[2019-04-05] MEDS ORDERED: fentaNYL 100 MCG/2 ML VIAL ONE ×2 (13:20→14:03)
--- NOTE | 2019-04-05 13:31 | PROVIDER PROGRESS NOTE ---
Labor Progress Note - Uterine Monitoring Uterine Monitoring Mode: positive: External toco Contraction Frequency (min/apart): difficult to assess due to tracing Contraction Intensity: positive: Moderate Uterine Resting Tone: positive: Soft - Monitoring Monitor Mode: positive: External ultrasound Heart Rate Baseline: 110 Heart Rate Variability: positive: Moderate (6-25 bmp) Accelerations: positive: Present, 15x15 Decelerations: positive: None Strip Review: positive: Category I - Vaginal Exam Dilation (in cm): 5 Effacement (%): 90 Station: 0 Cervical Position: Posterior - Labor Progress Note Labor Progress Note/Additional Text: S: On hands and knees in bed in significant discomfort. She is feeling nauseous with contractions despite administration of zofran. She has been using nitrous oxide for pain management with little relief and request fentanyl IV for pain management. and mother supportive at the bedside. O: Difficult to assess contractions via tocometry. Contractions palpate moderate every 3-6 minutes with soft resting tone. SVE 5/90/0, vertex. Membranes intact. FHR baseline 110, moderate variability, + accels. No decelerations appreciated but tracing difficult to assess secondary to patient's frequent position changes and demand that she not be touched during contractions. A: FHR Category I GBS neg P: Continuous monitoring Fentanyl 50mcg q 1 hour PRN pain Cessation of nitrous oxide Repeat SVE PRN
[2019-04-05] MEDS ORDERED: fent/BUPIV 2 MCG/0.125% 250 ML EP ONE (14:02)
[2019-04-05] MEDS ORDERED: ROPIVACAINE 0.2% PF 20 ML AMPULE ONE (14:03)
--- NOTE | 2019-04-05 14:45 | ANESTHESIA ---
Pre-Anesthesia VS, & Labs - Diagnosis term labor, IUP - Procedure JORGE Vital Signs: Temp Pulse Resp BP Pulse Ox 36.7 C 89 22 124/75 99 04/05/19 03:32 04/05/19 06:00 04/05/19 06:00 04/05/19 06:00 04/05/19 06:00 Height 5 ft 4 in Weight (kg) 84.822 kg Body Mass Index 24.0 - NPO Last Fluid Intake: t/o day - Is Patient ?: Yes - Lab Results Current Lab Results: Laboratory Tests 04/05/19 10:35: WBC 16.2 H, RBC 4.26, Hgb 12.9, Hct 38.7, MCV 90.8, MCH 30.2, MCHC 33.3, RDW 15.2 H, Plt Count 276, MPV 10.1, Neut # (Auto) 13.5 H, Lymph # (Auto) 1.7, [place] # (Auto) 0.8, Eos # (Auto) 0.0, Baso # (Auto) 0.1, Absolute Nucleated RBC 0.00, Nucleated RBC % 0.0 Lab results reviewed: Yes Fish Bones: 04/05/19 10:35 Home Medications and Allergies Active Medications Fentanyl (Fentanyl) 50 mcg IVP Q1H PRN PRN Reason: PAIN Last Admin: 04/05/19 13:20 Dose: 50 mcg Misoprostol (Cytotec) 50 mcg BC Q4H FAYE Last Admin: 04/05/19 11:03 Dose: 50 mcg Ondansetron HCl (Zofran Inj) 4 mg IVP Q6HR PRN PRN Reason: Nausea / Vomiting Last Admin: 04/05/19 11:03 Dose: 4 mg Pnv No.122/Iron/Folic Acid [ Multi Tablet] 1 each PO DAILY 08/07/18 Allergies/Adverse Reactions: Allergies Allergy/AdvReac Type Severity Reaction Status Date / Time No Known Drug Allergies Allergy Verified 08/07/18 00:00 Anes History & Medical History - Anesthetic History Anesthesia Complications: reports: No previous complications Family history of Anesthesia Complications: Denies Family history of Malignant Hyperthermia: Denies - Medical History Cardiovascular: reports: None Pulmonary: reports: None Endocrine/Autoimmune: reports: None Smoking Status: Never smoker - Obstetrical History : 1 Parity: 0 Events: positive: None Complications: positive: None Exam General: Alert, Oriented x3, Cooperative Dental: WNL Neck Mobility: Normal Mallampati classification: II Respiratory: No respiratory distress Cardiovascular: Regular rate Neurological: Normal speech Mental/Cognitive Status: Alert/Oriented X3, Normal for patient Plan Anesthesia Type: Epidural Consent for Procedure(s) Verified and Reviewed: Yes Code Status: Attempt Resuscitation ASA classification: 2-Mild systemic disease Is this case an emergency?: No
--- NOTE | 2019-04-05 15:33 | PROVIDER PROGRESS NOTE ---
Labor Progress Note - Uterine Monitoring Uterine Monitoring Mode: positive: External toco Contraction Frequency (min/apart): 3-5 Contraction Intensity: positive: Strong Uterine Resting Tone: positive: Soft - Monitoring Monitor Mode: positive: External ultrasound Heart Rate Baseline: 115 Heart Rate Variability: positive: Moderate (6-25 bmp) Accelerations: positive: Present, 15x15 Decelerations: positive: Early, Late, Variable, Intermittent (<50% x20 min) Strip Review: positive: Category II - Labor Progress Note Labor Progress Note/Additional Text: Patient crying in pain with each contractions. and mother supportive at the bedside. Difficulty tracing FHR secondary to pt position and refusal to be touched during contractions. During placement of epidural the pt was unable to be monitored for approximately 20 minutes. STRATEGIC CLIENT EXECUTIVE attempted x [address] epidural per maternal request without success and called for backup anesthesia provider. Upon my arrival to the room I discussed with the patient and her family the need to assess status. Reviewed that it has been difficult to monitor the baby throughout her labor course thus far and I am not comfortable going this long without assessing status. Despite position changes in attempt to monitor, heart rate unable to be assessed. At this time I recommended an FSE be placed for accurate monitoring. Pt refused and her states " I am not confident in the staff at this point and we will do not want that". I again reviewed that I have been unable to assess status for 20 minutes and the risk, especially given that fetus has been Category II with intermittent periods of Category I pattern up until this point, with difficulty assessing for longer periods of time, is that her could be severely compromised and there would be a delay in diagnosis and management of distress. The pts again declines. Continued attempt to assess status with external U/S were then able to asses heart rate baseline 115 with positive accelerations and at least one audible deceleration to 105. Overall reassuring but I again reviewed with pt and her that the tracing we are able to achieve secondary to pt discomfort and position changes could result in delay in diagnosis of distress. Pt and her again refuse FSE. Assessment: 33yo @ 41.6wks gestation Active labor GBS neg FHR Category II s/p 50mcg BC misoprostol x 1 Plan: Dr. Jacobs previously notified of pt status and persistent Category II FHR pattern. Pt continues to desire epidural for pain management - back up STRATEGIC CLIENT EXECUTIVE present to attempt placement of epidural Continuous monitoring Anticipate spontaneous vaginal delivery Repeat SVE placement of negro catheter
[2019-04-05] MEDS ORDERED: OXYTOCIN/SODIUM CHLORIDE 500 ML IV ONE (18:16)
[2019-04-05] MEDS ORDERED: fent/BUPIV 2 MCG/0.125% 250 ML EP PRN (18:52)
[2019-04-05] MEDS ORDERED: NALBUPHINE 10 MG/ML AMP IVP PRN (18:52)
[2019-04-05] MEDS ORDERED: diphenhydrAMINE INJ 50 MG/ML VIAL IVP PRN (18:52)
[2019-04-05] MEDS ORDERED: HYDROCORTISONE 1% CREAM 28 GM TUBE PR PRN (20:41)
[2019-04-05] MEDS ORDERED: WITCH HAZEL/GLYCERIN 1 EACH MED..PAD TOP PRN (20:41)
--- NOTE | 2019-04-05 20:41 | DELIVERY NOTE ---
Delivery Note - Labor Labor: positive: Other - Infant Delivery Method Delivery Method: positive: Spontaneous vaginal delivery - Cervical Ripening Method Cervical Ripening Method: positive: Misoprostil - Presentation Presentation: positive: Vertex, KING - left occiput anterior - Nuchal Cord Nuchal Cord: positive: None - Amniotic Fluid Description Amniotic Fluid Description: positive: Thick meconium - Episiotomy Type Episiotomy Type: positive: None - Laceration Laceration: positive: 2nd degree - Suture Suture Type: positive: Vicryl Suture Size: positive: 2-0, 3-0 - Delivery Outcome Delivery Outcome: positive: Livebirth - : positive: Placed in direct skin contact with mother, Bulb syringe, Stimulated, Warmed, [place] used sex: positive: Female - Cord Cord: positive: 3 vessels - Placenta Placenta: positive: Intact, Spontaneous - Estimated Blood Loss Estimated Blood Loss (in cc): 300 - Post Delivery Events Post Delivery Events: positive: No post delivery events - Delivery Comments (Free Text/Narrative) Delivery Comments (Free Text/Narrative): 33yo @ 41.4wks gestation presented on 04/05/2019 at approximately 0330 with c/o contractions. Upon arrival she was noted to be 3/80/0, vertex with intact membranes. FHR Category II tracing and pt counseled against going home. She was admitted for active management and given 50mcg BC misoprostol x 1 for augmentation. AROM attempted x 1 unsuccessful secondary to pt discomfort. FHR pa ttern was persistently difficult to evaluate throughout labor secondary to maternal movement and position changes and pt desire not to be touched. FHR pattern Category II throughout and overall reassuring. FSE recommended for accurate assessment of status and pt refused. Epidural placed per matneral request. SROM occurred at 182 and was noted to be a moderate amount of thick meconium stained amniotic fluid and log brander called to be present for delivery. Patient progressed to c/c/+2 at 1825. Patient began actively pushing at 183 and she spontaneously delivered a viable female at 1849. No nuchal cord. Apgars 8/9 at 1 and 5 min respectively. The was placed on maternal abdomen, stimulated, dried, and placed skin to skin. The umbilical cord was allowed to stop pulsating at which time it was doubly clamped by CNM and cut by FOB. 3VC. Pt refuses IV pitocin for management. Secondary to increased flow of vaginal bleeding I advised the patient to initiate pitocin via IV for hemostasis and she agrees. EBL 300mL. Uterine fundus firm and there is no excessive bleeding. The perineum, vagina, and cervix were inspected and found to have second degree laceration. Laceration was repaired using 2-[address]-1 needle in standard fashion under sterile conditions. Perineum repaired using 3-[address]-1 needle in standard fashion under sterile conditions. Vaginal and rectal examinations following repair were done. Tissues well approximated. initiated. Family bonding well. Both mother and infant were left in stable condition.
[2019-04-05] MEDS ORDERED: OXYTOCIN/SODIUM CHLORIDE 500 ML IV PRN (20:42)
[2019-04-05] MEDS ORDERED: LACTATED RINGERS 1,000 ML IV SCH (21:00)
[2019-04-05] MEDS: ACETAMINOPHEN 500 MG TABLET PO SCH (21:42)
[2019-04-05] MEDS: IBUPROFEN 800 MG TABLET PO SCH (21:42)
[2019-04-06] MEDS: IBUPROFEN 800 MG TABLET PO SCH ×4 (04:02→21:59)
[2019-04-06] MEDS: ACETAMINOPHEN 500 MG TABLET PO SCH ×3 (06:29→21:58)
--- NOTE | 2019-04-06 08:22 | PROVIDER PROGRESS NOTE ---
Subjective - Subjective Subjective: S: Bonding well with baby. without difficulty. Bleeding decreased and is light. Pain well controlled with oral medications. Having some back discomfort which she attributes to multiple attempts to place epidural. sleeping at the bedside. O: T 36.7, HR 66, RR 18, BP 131/75 Heart RRR w/o M/G/R, lungs CTAB, abdomen soft and nontender with fundus firm at U. Perineum intact, repair with moderate edema. Light lochia rubra. Bilateral LE's no edema. A: 33yo -->P1 PPD#1 s/p TSVD of viable female infant Second degree perineal laceration - intact P: Continue routine care and medications. Reviewed with patient that Dr. Jacobs will assume her care today and evaluate her for discharge home tomorrow. Pt verbalized understanding and agrees to above plan. She denies further questions or concerns at this time. Objective - Vital Signs/Intake & Output Vital Signs: Vital Signs x48h Temp Pulse Resp BP Pulse Ox 04/06/19 04:24 36.7 C 66 18 131/75 H 100 Intake & Output: Intake & Output 04/03/19 04/04/19 04/05/19 04/06/19 23:59 23:59 23:59 23:59 Output Total 1625 Balance -1625 - Lab Results Fish Bones: 04/05/19 10:35 Other Labs: Lab Results x24hrs 04/05/19 Range/Units 10:35 WBC 16.2 H (4.8-10.8) x10^3/uL RBC 4.26 (4.20-5.40) 10^6/uL Hgb 12.9 (12.0-16.0) g/dL Hct 38.7 (37.0-47.0) % MCV 90.8 (81.0-99.0) fL MCH 30.2 (27.0-31.0) pg MCHC 33.3 (32.0-36.0) g/dL RDW 15.2 H (12.0-15.0) % Plt Count 276 (130-450) 10^3/uL MPV 10.1 (7.9-10.8) fL Neut # (Auto) 13.5 H (1.5-6.6) 10^3/uL Lymph # (Auto) 1.7 (1.5-3.5) 10^3/uL [place] # (Auto) 0.8 (0.0-1.0) 10^3/uL Eos # (Auto) 0.0 (0.0-0.7) 10^3/uL Baso # (Auto) 0.1 (0.0-0.1) 10^3/uL Absolute Nucleated RBC 0.00 x10^3/uL Nucleated RBC % 0.0 /100WBC
[2019-04-06] MEDS: DOCUSATE SODIUM 100 MG CAPSULE PO SCH ×2 (10:23→20:44)
[2019-04-06] MEDS ORDERED: SODIUM CHLORIDE FLUSH 0.9% 10 ML SYRINGE ONE (18:54)
[2019-04-07] MEDS: IBUPROFEN 800 MG TABLET PO SCH ×2 (04:47→10:57)
[2019-04-07] MEDS: DOCUSATE SODIUM 100 MG CAPSULE PO SCH (08:18)
[2019-04-07] MEDS: ACETAMINOPHEN 500 MG TABLET PO SCH (08:18)
--- NOTE | 2019-04-07 10:29 | PROVIDER PROGRESS NOTE ---
Subjective - Prog Note Date Prog Note Date: 04/07/19 Prog Note Time: 10:27 - Subjective Pt reports feeling: Improved (Pt is PPD#2 progressing. breast feeding. Pain 10. notes soreness. states adiquit pain control. Breast feeding.) Objective - Vital Signs/Intake & Output Reviewed Vital Signs: Yes Vital Signs: Vital Signs x48h Temp Pulse Resp BP Pulse Ox 04/07/19 08:40 36.8 C 77 17 116/71 99 04/07/19 04:45 36.5 C 76 16 110/62 99 Intake & Output: Intake & Output 04/04/19 04/05/19 04/06/19 04/07/19 23:59 23:59 23:59 23:59 Output Total 1625 Balance -1625 - Objective General Appearance: positive: No acute distress, Alert Abdomen: positive: Non-tender, No organomegaly Extremities: positive: Non-tender. negative: Calf tenderness, Ji's sign/cords - Lab Results Fish Bones: 04/05/19 10:35 Assessment/Plan - Problem List (1) (spontaneous vaginal delivery) Impression: PPD #2 progressing. breast feeding. milk not in. Reviewed mastitis, uterine infection. Discharge medication Oxycodone 5 mg # 10 Motrin 800 mg Colace 100 mg Reviewed contraception. RTC 1 week.
--- NOTE | 2019-04-07 10:34 | Discharge Plan ---
Discharge Plan Disposition: 01 Home, Self Care Condition: Good Diet: Regular Activity Restrictions: Pelvic rest 6 weeks Shower Restrictions: No Driving Restrictions: No Weight Bearing: Full Weight No Smoking: If you smoke, Please STOP! Call for help.
[2019-04-07 11:24] VITALS: BP 126/82
--- NOTE | 2019-04-07 12:06 | Labor Flowsheet ---
Labor Flowsheet Datetime Report Generated by CPN: 04/07/2019 12:06 Datetime: 04/07/2019 10:45 VITAL SIGNS NBP Sys/Elda/Mean (mmHg): 126 : 82 : 92 Pulse: 95 LaborFlag: Labor Datetime: 04/06/2019 08:14 SpO2 (%): 99 Datetime: 04/05/2019 18:49 Comments: baby girl delivered 1849 heart rate 100s prior to delivery Datetime: 04/05/2019 18:45 UTERINE ACTIVITY Monitor Mode: External Frequency (min): 2-3 Quality: Strong Duration (sec): 40-60 Pattern: Normal: <= 5 Contractions in 10 Minutes Resting Tone (Palpate): Relaxed Contraction Comments: pt actively pushing with each ctx. making decent Datetime: 04/05/2019 18:30 ASSESSMENT A Monitor Mode: External US FHR Baseline Rate : 135 Variability: Moderate 6-25 bpm Accelerations: 15X15 Decelerations: Variable Category: Category II PATIENT CARE Oxygen Method: Room Air STAGE 2 Pushing: Coached on Pushing Pushing Position: Pushing with Contractions Pushing Progress: Descent with Pushing Datetime: 04/05/2019 18:25 VAGINAL EXAM Dilatation (cm): 10.0 Station: 3 Exam by: alla sanchez rn Vaginal Exam Comments: Patient Care Comments: negro cath attempt, resistance met. unable to advance due to baby COMMUNICATION Communication: Provider at Bedside Datetime: 04/05/2019 18:24 Membranes Rupture Method: Spontaneous Amniotic Fluid Color: Heavy Meconium Amniotic Fluid Amount: Moderate Datetime: 04/05/2019 18:15 FHR Baseline Changes: No Baseline Change Datetime: 04/05/2019 17:19 Respirations: 17 Temperature (C): 36.7 Datetime: 04/05/2019 17:15 Monitor Interventions for UA: [place] Adjusted Datetime: 04/05/2019 16:30 Monitor Interventions for FHR: Ultrasound Adjusted Pain Coping: Talking Through Contractions Pain Assessment Comments: pt resting on and off Comfort Measures: Breathing/Relaxation Datetime: 04/05/2019 15:59 Patient Position/Activity: Left Tilt Datetime: 04/05/2019 15:28 Epidural Procedure: Test Dose Epidural Procedure Other: Single Dose Datetime: 04/05/2019 15:19 Epidural Positioning: Sitting Datetime: 04/05/2019 15:14 ANESTHESIA Anesthesia Plans: Epidural Anesthesia Comments: silvano sharpe in for epidural placement Datetime: 04/05/2019 15:00 Medication Comments: nitrous off, epidural placed Datetime: 04/05/2019 14:07 PROCEDURE TIME OUT Procedure Verify: Correct Patient Identity; Accurate Procedure Consent Form; Agreement on Procedure to be Done; Correct Patient Position; Addressed Need to Administer Antibiotics or Fluids for Irrigat ion; Safety Precautions Based on Patient History or Medication Use Datetime: 04/05/2019 13:19 MEDICATIONS Analgesics/Sedatives: Fentanyl (mcg) @ 50 Datetime: 04/05/2019 12:47 Notification Reason: Status Update; Status; Labor Status Communication Comments: will be in to see pt Datetime: 04/05/2019 12:40 Pain Relief Measures: Comfort Measures Datetime: 04/05/2019 09:58 Membrane Comments: attempt to AROM, no fluid noted Datetime: 04/05/2019 09:36 Effacement (%): 80 Datetime: 04/05/2019 09:24 Stage of : Labor Datetime: 04/05/2019 09:00 PAIN Pain Scale: 6 Datetime: 04/05/2019 08:30 Provider Reviewed Strip: Yes Strip Reviewed by: Rosalinda Du CNM Datetime: 04/05/2019 07:36 I/O Interventions: Up to BR
--- NOTE | 2019-04-07 13:14 | DISCHARGE SUMMARY ---
Physician: Boaz Jacobs MD DATE OF ADMISSION: 04/05/2019 DATE OF DISCHARGE: 04/07/2019 ADMITTING DIAGNOSES 1. A 33-year-old G1, P0, female, estimated date of confinement 03/25/2019, 41.4 weeks. 2. Category 2 monitor strip. DISCHARGE DIAGNOSES 1. A 33-year-old G1, P0, female, estimated date of confinement 03/25/2019, 41.4 weeks. 2. Category 2 monitor strip. 3. Thick meconium, delivery live female infant, Apgars 8 and 9. 4. Second-degree laceration. PROCEDURES 1. Misoprostol augmentation. 2. Attempted artificial rupture of membranes. 3. Epidural. 4. Spontaneous vaginal delivery. 5. Repair of second-degree laceration. PRESENTING HISTORY: Patient is a 24-year-old G1, P0, female whose due date was 03/25/2019. She initiated her care at the [facility]. She transferred at 22 weeks. She had an ultrasound that showed evidence of pyelectasis. She was seen by maternal medicine and was noted to be normal. Patient was scheduled for a 50 gram Glucola but refused. She did have a hemoglobin A1c, which was 5.0. Patient wanted to be as noninterventive as possible during her . She presented on the 04/05 at which time she was noted to have a category 2 strip. After much coaxing and cajoling, she decided to stay for induction of labor. LABORATORIES: CBC showed a white count of 16.0, hemoglobin was 12.9, hematocrit was 38.7, and platelets were 276. HOSPITAL COURSE: Following much coaxing, patient decided to be admitted for induction secondary to a category 2 strip. She received misoprostol x1 for augmentation and strip varied between category 1 and category 2. She had difficulty with pain control, received an epidural. This gave her adequate pain control. At 1824, she spontaneously ruptured and was noted to have a moderate amount of thick stained amniotic fluid. For this reason, the [employer] was summoned. The patient reached complete at 1825. The patient started pushing at 1831 and spontaneously delivered a live male with Apgars 8 and 9 at 1849. The was placed on maternal abdomen, dried and cared for. The patient refused Pitocin initially after delivery, but following increased vaginal bleeding allowed this medication to be used. She had a total blood loss estimated at 300 mL. Fundus was firm. She suffered a second-degree laceration, which was repaired with 2-0 Vicryl. Her course has been unremarkable. Her diet is normal. She is having adequate pain control at this time. She is being discharged to home on medications of oxycodone, Motrin, and Colace. I have discussed the issues of mastitis as well as reviewed the fact that is not adequate contraception. She has not given her decision as to what she wants to use for contraception at this time. She has been instructed to follow up in the clinic in roughly 1 week. TD: 04/07/2019 12:36 ATPAN
== END 2019-04-07 11:25 | disposition home or self-care (01) | DRG 807 ==
LOC: WFO 03:22 → FBP 03:24 → WFO 06:58
PROVIDERS: ADMIT Nurse Practitioner Obstetrics & Gynecology; ATTEND Obstetrics & Gynecology
PROC: 10E0XZZ Delivery of Products of Conception, External Approach (ICD-10-PCS; principal; 2019-04-05)
PROC: 0KQM0ZZ Repair Perineum Muscle, Open Approach (ICD-10-PCS; 2019-04-05)
DX: O48.0 Post-term pregnancy (principal); Z37.0 Single live birth; O76 Abnormality in fetal heart rate and rhythm complicating labor and delivery; O77.0 Labor and delivery complicated by meconium in amniotic fluid; O70.1 Second degree perineal laceration during delivery; Z3A.41 41 weeks gestation of pregnancy; Z91.19 Patient's noncompliance with other medical treatment and regimen
CPT/HCPCS: 85025; 99213; A9270; J7120